=== PATIENT | male | born 1950 | race Caucasian/White ===

== ENCOUNTER 2017-06-12 02:10 | Inpatient (IN) | payer MEDICARE ==
[~2017-06-12] VITALS: Ht 180.3 cm; Wt 115.5 kg
[2017-06-12] VITALS (11 sets, daily range): BP systolic 110–131; BP diastolic 57–78; PULSE 93–119; RESP 15–24; O2SAT 94–99
--- NOTE | 2017-06-12 02:22 | ED.REPORT ---
HPI-Seizure Date of Service Jun 12, 2017 ED Provider: Reese Lorenzana MD A 67 year old male with a history of hypertension and diabetes is brought to the ED via EMS due to a seizure. The pt experienced a witnessed, first time seizure yesterday while the pt was in [place]. He denies incontinence or oral injury during the seizure. The pt waited to return to the [place] to be treated. The pt also reports abdominal pain, nausea, rectal bleeding, hematochezia and melena that began two days ago and has continued since. He denies headache, vomiting, loss of sensory or motor skills, vision changes. The pt has no history of either seizures or rectal bleeding. He had a lower endoscopy at [place] two years ago. Nursing Notes Stated Complaint: SEIZURE Chief Complaint: General Complaint Nursing Notes Reviewed: Yes Allergies: Coded Allergies: No Known Allergies (Unverified , 06/12/17) General Time Seen by Provider: 02:21 Chief Complaint Chief Complaint: Seizure, generalized Hx Obtained From: Patient, EMS Arrived By: Ambulance Onset Occurred: 1 day ago Symptom Duration: Since onset Recent Healthcare: No recent doctor visit, No recent hospitalization Similar Sx Previous: No Past Medical History Past Medical History psoriasis Reports: Diabetes mellitus, Hypertension Past Surgical History none reported Smoking History Unknown if Ever Smoker Social History Other Social History: Ambulatory Status Independent Review of Systems Review of Systems Note: rectal bleeding Respiratory: Denies: Non-productive cough, Shortness of breath Cardiovascular: Denies: Chest pain Musculoskeletal: Denies: Back pain, Neck pain Skin: Denies Rash Neurologic: Reports: Seizure, Denies: Focal weakness, Headache, Numbness, Vision change Complete sys rev & neg: except as marked. GI: Reports: Bloody/tarry stool, Hematochezia, Nausea, Denies: Vomiting Physical Exam Initial Vital Signs Vital Signs (First) Date Time Temp Pulse Resp B/P Pulse Ox O2 Delivery O2 Flow Rate FiO2 06/12/17 02:14 36.6 107 24 111/57 97 Room Air Initial VS: Reviewed General/Constitutional: Awake, Alert moderately obese Neck: Atraumatic, Supple, Full range of motion Respiratory / Chest: Atraumatic, Breath sounds NL, Breath sounds = bilat, No respiratory distress Cardiovascular: Heart rate NL, Regular rhythm, Heart sounds NL Neurologic: Oriented X3, Speech NL, No motor deficits, No sensory deficits Head / Eyes: Atraumatic, Normocephalic, PERRL, EOMI ENT: Atraumatic, Airway patent, Mucous membranes moist Abdomen: Atraumatic, Soft diffusely tender abdomen Upper Extremity / MS: Atraumatic, Full range of motion Lower Extremity / Pelvis / MS: Atraumatic, Full range of motion Skin: Color NL, Warm, Dry widespread psoriasis Psychiatric: Affect NL, Mood NL Back: Atraumatic, Full range of motion Rectum / Perineum: No hemorrhoids, No mass mixture of bright red blood and melena Interpretation & Diagnostics Lab Results Interpretation Result Diagram: 06/12/17 0455 06/12/17 0222 Test 06/12/17 02:22 06/12/17 03:49 06/12/17 04:55 White Blood Count 14.1th/mm3 (3.8-10.1) Red Blood Count 3.35mil/mm3 (4.40-5.80) Mean Corpuscular Volume 93.7fL (81-100) Mean Corpuscular Hemoglobin 32.5pg (27.0-35.0) Mean Corpuscular Hemoglobin Concent 34.7% (32.0-37.0) Red Cell Distribution Width 12.9% (12.3-15.4) Platelet Count 191bil/L (150-400) Neutrophils (%) (Auto) 77.6% (40-74) Lymphocytes (%) (Auto) 16.6% (14-46) Monocytes (%) (Auto) 5.0% (4-12) Eosinophils (%) (Auto) 0.2% (0-5) Basophils (%) (Auto) 0.2% (0-3) Prothrombin Time 10.8sec (8.1-12.5) Prothromb Time International Ratio 1.01ratio Sodium Level 135mEq/L (134-144) Potassium Level 5.2mEq/L (3.5-5.2) Chloride Level 101mEq/L (97-108) Carbon Dioxide Level 20mmol/L (18-29) Blood Urea Nitrogen 45mg/dL (8-27) Creatinine 1.08mg/dL (0.76-1.27) Estimat Glomerular Filtration Rate 72mL/min (>59) Glucose Level 383mg/dL (60-99) Calcium Level 9.2mg/dL (8.5-10.1) Magnesium Level 1.7mg/dL (1.6-2.6) Total Bilirubin 0.5mg/dL (0.0-1.2) Aspartate Amino Transf (AST/SGOT) 25U/L (0-50) Alanine Aminotransferase (ALT/SGPT) 42U/L (0-44) Alkaline Phosphatase 54U/L (25-160) Total Protein 6.2g/dL (6.4-8.4) Albumin 3.5g/dL (3.4-5.0) Lipase 41U/L (13-60) Alcohols < 10mg/dL (0-10) Urine Color Yellow (YELLOW) Urine Appearance Clear (CLEAR,HAZY) Urine pH 5.5 (5.0-8.0) Urine Specific [place] 1.015 (1.003-1.035) Urine Protein Negativemg/dL (NEG,TRACE) Urine Glucose (UA) 500mg/dL (NEGATIVE) Urine Ketones Negativemg/dL (NEGATIVE) Urine Occult Blood Negative (NEGATIVE) Urine Nitrite Negative (NEGATIVE) Urine Bilirubin Negative (NEGATIVE) Urine Urobilinogen Normalmg/dL (NORMAL) Urine Leukocyte Esterase Negative (NEGATIVE) Urine RBC 0-2/hpf (0-2) Urine WBC 0-5/hpf (0-5) Urine Epithelial Cells Occasional/hpf (NONE-MOD) Urine Crystals None seen (NONE SEEN) Urine Bacteria None/hpf (NONE-FEW) Urine Hyaline Casts None/lpf (NONE) Urine Granular Casts None seen (NONE SEEN) Urine Waxy Casts None seen (NONE SEEN) Urine Red Blood Cell Casts None seen (NONE SEEN) Urine White Blood Cell Casts None seen (NONE SEEN) Urine Mucus None seen (None Seen) Urine Trichomonas None seen (NONE SEEN) Urine Yeast None (NONE SEEN) Urinalysis Comment None Urine Opiates Screen Negative Urine Methadone Screen Negative Urine Barbiturates Screen Negative Urine Amphetamines Screen Negative Urine Benzodiazepines Screen Negative Urine Cocaine Metabolite Screen Negative Urine Cannabinoids Screen Negative Hemoglobin 9.8g/dL (13.8-17.2) Hematocrit 28.6% (41.0-50.0) ECG Interpretation ECG Interpretation: sinus tachycardia with a rate of 119 Time: 02:37 Interpreted by: ED physician X-Ray Chest Interpretation Chest Xray Interpretation: no acute findings Interpretation / Wet Read by: Wet read ED physician CT Head Interpretation IMPRESSION: No CT evidence of hemorrhage, mass, or acute infarct. Interpretation / Wet Read by: Interpret - Radiologist Re-Eval/Medical Decision Med Decision/Clinical Course 67-year-old presents with a seizure twenty-four hours ago, but his first ever. CT interpreted as negative, but there is a hyperdense area that appears calcified in the basal ganglia that is not symmetric and may represent an abnormal calcification. Await over read this morning and MRI later today. He complains additionally of bright red blood and melena per rectum. Rectal exam shows some maroonish stool that is grossly heme positive but no rectal mass or hemorrhoids. He appears to have an upper GI source most likely. He is had a recent endoscopy in the past two years, and may have an AV malformation or diverticulosis, but probably does not have a significant polyp or cancer. He is admitted to the medicine service for evaluation of his various problems. He has begun with Colyte to prepare him and enable upper and lower endoscopy. Hemoglobin is definitely low but adequate, but may require transfusion if he continues to bleed. Re-Evaluation/Progress : Time of Eval: 03:46 Patient Status: Condition improved Re-Evaluation/Progress Note: Pt rechecked, who is resting. The diagnosis and plan for admission are discussed. The pt understands and agrees with the plan. All questions are addressed at this time. 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 Hogan, hospitalist, regarding pt's case. Dr. Hogan agrees with the evaluation and agrees to admit the pt. Counseled Regarding: Diagnosis, Lab results, Need for admission Discharge & Departure Impression: Primary Impression: Upper GI bleed Additional Impression: New onset seizure Disposition: ADMITTED TO HOSPITAL Discharge Condition All VS Reviewed: Yes Condition: Stable Referrals: [facility] Scribe Attestation Portions of this note were transcribed by Johan Todd. I, Dr. Lorenzana personally performed the history, physical exam and medical decision-making; I reviewed and confirmed the accuracy of the information in the transcribed note. copies to: [facility] Reese Lorenzana MD Jun 12, 2017 02:21 JOHAN TODD Jun 12, 2017 02:38
[2017-06-12 02:29] LABS: BASOPHILS % (AUTO) 0.2 % (0-3); EOSINOPHILS % (AUTO) 0.2 % (0-5); Mean Corpuscular Hemoglobin 32.5 pg (27.0-35.0); Mean Corpuscular Volume 93.7 fL (81-100); NEUTROPHILS % (AUTO) 77.6 % (40-74); Platelet Count 191 bil/L (150-400)
[2017-06-12] MEDS ORDERED: 0.9% Sodium Chloride 1,000 ML IV ONE (02:33)
[2017-06-12 02:50] LABS: INR 1.01 ratio
[2017-06-12 02:56] LABS: Magnesium 1.7 mg/dL (1.6-2.6)
[2017-06-12] MEDS ORDERED: PEG/Electrolytes 4,000 mL Solution PO ONE (04:00)
[2017-06-12 04:20] LABS: APPEARANCE,URINE CLEAR (CLEAR,HAZY); COLOR,URINE YELLOW (YELLOW); OCCULT BLOOD,URINE NEGATIVE (NEGATIVE); PH,URINE 5.5 (5.0-8.0); UROBILINOGEN,URINE NORMAL (NORMAL)
[2017-06-12] MEDS ORDERED: Pantoprazole Inj 80 MG in 0.9% Sodium Chloride 80 ML IV ONE (04:25)
[2017-06-12] MEDS ORDERED: Ondansetron 2 mg/mL 2 mL Inj IVPUSH PRN ×2 (04:25→16:30)
--- NOTE | 2017-06-12 04:35 | PCM.HPMED ---
Subjective Date of Service Jun 12, 2017 Primary Provider: Admitting Physician: Primary Care Physician: Naty Attending Physician: Admit Status: From the Emergency Department, Full Admit, Remote Telemetry Chief Complaint: seizure,black stool History of Present Illness: 67 year old male who yesterday started having some black stool. Never had anything similar to this previously. He denies any chest pain he denies shortness of breath or lightheaded. He also was observed by his to have a generalized tonic-clonic seizure earlier today. He has no history of seizures. He actually is traveling from [place] was up in [place] and was driving through [employer] where this occurred and had several black stools and hence presented to the emergency room today. He has been having some epigastric pain but does note that sometimes it is generalized pain over the past 2 days. He notes some nausea denies any vomiting. He does not have any significant alcohol use. Denies nonsteroidal anti-inflammatory use. Review of Systems: Denies fevers chills denies urinary symptoms all other review of systems are negative except for as in history of present illness. Allergies Coded Allergies: No Known Allergies (Unverified , 06/12/17) Home Medications Med reconciliation has not been completed yet [facility] Past Medical History Past Medical History psoriasis Reports: Diabetes mellitus, Hypertension Past Surgical History none reported Family History Mother with a history of spinal tumor and father with a history of hypertension Social History Hx Alcohol Use: Yes (2 drinks per month at most) Hx Tobacco Use: Yes (he chews tobacco. And quit smoking cigarettes about 30 years ago) Smoking Status: Unknown if Ever Smoker Living Arrangement: with Family Exam Vital Signs Vital Sign - Last Date Time Temp Pulse Resp B/P Pulse Ox O2 Delivery O2 Flow Rate FiO2 06/12/17 02:14 36.6 107 24 111/57 97 Room Air Exam Constitutional: Middle-aged male in no acute distress Head: Normocephalic atraumatic Eyes: PERRLA DC EOMI Mouth: No lesions Neck: No adenopathy Chest: Clear to auscultation Cor: Regular rate and rhythm S1-S2 without murmur Abdomen: Soft mild diffuse tenderness including over the epigastrium bowel sounds are present Extremities: No pedal edema Skin: Does have psoriatic skin plaques present Psych: Mood and affect are appropriate Neuro: Alert and oriented 3, motor strength is intact bilaterally Lab and Diagnostics Labs Laboratory Tests 72 Hours Test 06/12/17 02:22 06/12/17 03:49 White Blood Count 14.1th/mm3 (3.8-10.1) Red Blood Count 3.35mil/mm3 (4.40-5.80) Hemoglobin 10.9g/dL (13.8-17.2) Hematocrit 31.4% (41.0-50.0) Mean Corpuscular Volume 93.7fL (81-100) Mean Corpuscular Hemoglobin 32.5pg (27.0-35.0) Mean Corpuscular Hemoglobin Concent 34.7% (32.0-37.0) Red Cell Distribution Width 12.9% (12.3-15.4) Platelet Count 191bil/L (150-400) Neutrophils (%) (Auto) 77.6% (40-74) Lymphocytes (%) (Auto) 16.6% (14-46) Monocytes (%) (Auto) 5.0% (4-12) Eosinophils (%) (Auto) 0.2% (0-5) Basophils (%) (Auto) 0.2% (0-3) Prothrombin Time 10.8sec (8.1-12.5) Prothromb Time International Ratio 1.01ratio Sodium Level 135mEq/L (134-144) Potassium Level 5.2mEq/L (3.5-5.2) Chloride Level 101mEq/L (97-108) Carbon Dioxide Level 20mmol/L (18-29) Blood Urea Nitrogen 45mg/dL (8-27) Creatinine 1.08mg/dL (0.76-1.27) Estimat Glomerular Filtration Rate 72mL/min (>59) Glucose Level 383mg/dL (60-99) Calcium Level 9.2mg/dL (8.5-10.1) Magnesium Level 1.7mg/dL (1.6-2.6) Total Bilirubin 0.5mg/dL (0.0-1.2) Aspartate Amino Transf (AST/SGOT) 25U/L (0-50) Alanine Aminotransferase (ALT/SGPT) 42U/L (0-44) Alkaline Phosphatase 54U/L (25-160) Total Protein 6.2g/dL (6.4-8.4) Albumin 3.5g/dL (3.4-5.0) Lipase 41U/L (13-60) Alcohols < 10mg/dL (0-10) Urine Color Yellow (YELLOW) Urine Appearance Clear (CLEAR,HAZY) Urine pH 5.5 (5.0-8.0) Urine Specific [place] 1.015 (1.003-1.035) Urine Protein Negativemg/dL (NEG,TRACE) Urine Glucose (UA) 500mg/dL (NEGATIVE) Urine Ketones Negativemg/dL (NEGATIVE) Urine Occult Blood Negative (NEGATIVE) Urine Nitrite Negative (NEGATIVE) Urine Bilirubin Negative (NEGATIVE) Urine Urobilinogen Normalmg/dL (NORMAL) Urine Leukocyte Esterase Negative (NEGATIVE) Urine RBC 0-2/hpf (0-2) Urine WBC 0-5/hpf (0-5) Urine Epithelial Cells Occasional/hpf (NONE-MOD) Urine Crystals None seen (NONE SEEN) Urine Bacteria None/hpf (NONE-FEW) Urine Hyaline Casts None/lpf (NONE) Urine Granular Casts None seen (NONE SEEN) Urine Waxy Casts None seen (NONE SEEN) Urine Red Blood Cell Casts None seen (NONE SEEN) Urine White Blood Cell Casts None seen (NONE SEEN) Urine Mucus None seen (None Seen) Urine Trichomonas None seen (NONE SEEN) Urine Yeast None (NONE SEEN) Urinalysis Comment None Urine Opiates Screen Negative Urine Methadone Screen Negative Urine Barbiturates Screen Negative Urine Amphetamines Screen Negative Urine Benzodiazepines Screen Negative Urine Cocaine Metabolite Screen Negative Urine Cannabinoids Screen Negative Result Diagram: 06/12/1722106/12/17221 X-Rays, CTs and MRIs CT of brain without contrast per ER M.D. is negative 12-lead ECG Sinus tachycardia at a rate of 119 Assessment & Plan #Melena, acute, present on admission -Most likely due to upper GI bleed so will start IV Protonix drip after loading with 80 mg IV -Check serial hematocrits -Need to call GI in a.m. regarding this patient -Type and hold PRBCs -Keep nothing by mouth #Generalized tonic-clonic seizure, new onset, acute, present on admission -We will check MRI of head in a.m. -We will not start any antiseizure medication at this time -Also check urine tox screen #Hypertension, chronic, present on admission -Need to find out what medications patient is on #Type II diabetes, chronic, present on admission -We will hold his oral glipizide -check 4 times a day blood sugars and put on correction dose insulin scale #Psoriasis, chronic, present on admission -We will need to find out what medications he is on #DVT prophylaxis -Because of GI bleed will not place on subcutaneous prophylactic anticoagulation -We will use SCDs #CODE STATUS -Full code GI Prophylaxis: Proton Pump Inhibitor VTE Prophylaxis Indicated: Contraindicated VTE Prophylaxis: SCDs Resuscitation Status: CPR: Attempt Resuscitation Time spent 60 minutes Trang Hogan MD Jun 12, 2017 04:34
[2017-06-12] MEDS: 0.9% Sodium Chloride 1,000 ML IV SCH ×2 (05:25→11:28)
[2017-06-12] MEDS: Pantoprazole Inj 80 MG, Pharmacy To Mix 1 EA in 0.9% Sodium Chloride 80 ML IV SCH ×4 (05:47→11:27)
--- NOTE | 2017-06-12 07:25 | DRSVH ---
PROCEDURE: CT BRAIN WITHOUT CONTRAST ([id number]) INDICATIONS: new onset seizure TECHNIQUE: Noncontrast 4.5 mm thick angled axial sections acquired from the foramen magnum to the vertex, with c oronal reformats. COMPARISON: None. FINDINGS: Image quality: Excellent. CSF spaces: Basal cisterns are patent. No extra-axial fluid collections. Ventricles are normal in size and shape. Brain: No midline shift. No intracranial masses or hemorrhage. [place]-white matter interface is norm al. Skull and face: Calvarium and visualized facial bones are intact, without suspicious lesions. Sinuses: Visualized sinuses and mastoids are clear. IMPRESSION: No CT evidence of acute intracranial pathology. Dictated by: Maurice Perez M.D. on 06/12/2017 at 7:22 Approved by: Maurice Perez M.D. on 06/12/2017 at 7:24
--- NOTE | 2017-06-12 07:43 | DRSVH ---
PROCEDURE: X-RAY CHEST ONE VIEW, PORTABLE ([id number]) INDICATIONS: seizure TECHNIQUE: One view of the chest was acquired. COMPARISON: None. FINDINGS: Surgical changes and devices: None. Lungs and pleura: No pleural effusions or pneumothorax. Lungs are clear. Mediastinum: Mediastinal contours appear normal. Heart size is normal. Bones and chest wall: No suspicious bony lesions. Overlying soft tissues appear unremarkable. IMPRESSION: No radiographic evidence of acute cardiopulmonary pathology. Dictated by: Maurice Perez M.D. on 06/12/2017 at 7:40 Approved by: Maurice Perez M.D. on 06/12/2017 at 7:41
[2017-06-12] MEDS ORDERED: Propofol 10,000 mCg/mL 20 mL Inj ONE (07:46)
[2017-06-12] MEDS ORDERED: OXYC-474 PO (09:20)
[2017-06-12] MEDS ORDERED: PREG150C PO (09:20)
[2017-06-12] MEDS ORDERED: LISI-567 PO (09:20)
[2017-06-12] MEDS ORDERED: PRAZ2CAP2 PO (09:20)
[2017-06-12] MEDS ORDERED: CHOL10008 PO (09:20)
[2017-06-12] MEDS ORDERED: GLPZ5T PO (09:20)
--- NOTE | 2017-06-12 09:57 | DRSVH ---
PROCEDURE: MRI BRAIN WITHOUT CONTRAST ([id number]) INDICATIONS: new onset seizure TECHNIQUE: Non-contrast axial T1 spin echo, axial T2 fast spin echo, sagittal and axial FLAIR, coronal T2 fast s pin echo, axial gradient echo, axial diffusion and ADC through the brain. COMPARISON: [facility], CT, CT BRAIN WO CON, 06/12/2017, 2:47. FINDINGS: Image quality: Motion is present throughout the examination. CSF spaces: Ventricles appear symmetric in size and shape. Basal cisterns are patent. No extra-axi al fluid collections. Brain: No intracranial bleeds or mass effects. There is cerebral volume loss for age. There are pe riventricular and deep white matter chronic small vessel ischemic changes. Brainstem appears normal. Diffusion-weighted images show no acute ischemic insults. No chronic ischemic insults. Normal int ravascular flow voids are present. Skull and face: Calvarial bone marrow is normal in signal. Orbits are normal. Sinuses: Sinuses and mastoids are clear. IMPRESSION: 1. No acute intracranial process. 2. Mild atrophy and chronic microvascular ischemic changes. Dictated by: Keyana Mcginnis M.D. on 06/12/2017 at 9:53 Approved by: Keyana Mcginnis M.D. on 06/12/2017 at 9:56
--- NOTE | 2017-06-12 13:44 | NUR ---
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 He completed his Colyte before his arrival. He since had a few black liquid stools in the bathroom. Pt. denied discomfort or pain. Telemetry is SR. H&H stable at 9.8/28.6 and 9.4/27.3. Continue Protonix drip. Plan: GI consult.
--- NOTE | 2017-06-12 15:43 | NUR ---
Social Work-initial assessment: Data:See initial assessment. Pt is a 67 y/o male who was admitted on 06/12/17 for UGI bleed per H&P. Pt's insurance is [facility] and PCP is in [place]. EMR reviewed. MALACHI met with pt at bedside, SW role explained. Pt is alert and oriented x3. Pt resides at home in [place] with his , but is currently on vacation in their RV. Pt drives and does not use any DME. Pt has no HH or SNF history. Pt has no terminal carman care insurance or VA benefits. SW discussed DPOA/ advanced directive paperwork, pt declining at this time. SW provided pt with discharge planning checklist booklet and encouraged him to call with question, phone number provided. Pt's to provide transport home. SW to follow for needs and MD orders. Assessment:Pt who is independent at baseline. Plan:Anticipate pt to discharge home with when medically stable. SW to follow for needs and MD orders. JHONATAN Cruz Addendum: 06/12/17 at 1546 by SHANNAN STRICKLAND Amended: Links added.
--- NOTE | 2017-06-12 15:58 | NUR ---
Endo Pt. is scheduled for upper endoscopy this afternoon. Report given to Endo nurse, LINDSAY Champagne. Addendum: 06/12/17 at 1619 by PRIYA SIDDIQI RN Pt. transferred to [facility] at 1618, accompanied by 2 Endo nurses. medical office technologist was notified. Addendum: 06/12/17 at 1807 by PRIYA SIDDIQI RN Pt. returned to [facility] at 1752. On arrival, he was alert, oriented, and LUCERO.
--- NOTE | 2017-06-12 16:28 | CONS ---
[address] [address] CONSULTATION REPORT PATIENT: EVELYN DOTY : 1950 MR#: [id number] ADMIT: 06/12/2017 JOB ID: [id number] DATE OF SERVICE: 06/12/2017 REASON FOR CONSULTATION: It was a pleasure seeing this patient at [facility] for melena. HISTORY OF PRESENT ILLNESS: This is a 67-year-old gentleman with past history of psoriasis, diabetes, hypertension, who started having black stools about 2-3 days ago. He had formed black stools about 2-3 times a day. However, the reason why he came to the emergency department is because his noted that he had generalized tonic-clonic seizure, and because of this, the patient was brought to the emergency department. In the emergency department, they incidentally found that he had melena and he was noted to be anemic. He was given 80 mg Protonix bolus and 8 mg an hour of drip. He has no further episodes of seizure and currently he is being worked up for seizure. Apparently he was given GoLYTELY and his stool did clear up. He had no continuing episode of melena according to the medical staff and he denies any lightheadedness, dizziness, chest pain, shortness of breath, abdominal pain. No fresh blood or maroon colored stools. He did indicate to me that he started having abdominal pain after he started taking the GoLYTELY prep. However, he did not have any abdominal pain when he was at home. But, he did have issues with musculoskeletal pain so he was taking aspirin and ibuprofen. PAST MEDICAL HISTORY: As above. PAST SURGICAL HISTORY: None. SOCIAL HISTORY: Drinks alcohol 2 drinks per month. Uses tobacco, he chews; but he stopped smoking 30 years ago. No THC. MEDICATIONS: In the hospital include Protonix, Zofran. PHYSICAL EXAMINATION: Patient is alert, oriented, comfortable. Temp 37, pulse 93, respiration 18, blood pressure 126/74. Head and neck: No icterus. Lungs clear. Cardiovascular: Regular rate and rhythm. Normal S1, S2. Abdomen is soft, nontender, nondistended with normoactive bowel sounds. Extremities: No pitting edema at the ankles. Skin shows no jaundice. LABORATORY DATA: Hemoglobin: He went from 9.8 to 9.4. INR 1.01. Chemistry: BUN 45, creatinine 1.08, glucose 383. LFTs normal. Lipase normal. IMAGING: Brain MRI: No acute intercranial process. Myotrophy. Chronic microvascular ischemic changes. IMPRESSION: This is a gentleman who took some nonsteroidal antiinflammatory drugs [id number] as well as aspirin with melena. He is hemodynamically stable. Not tachycardic. Not dizzy, lightheaded. He has risk of developing ulcers. I was informed that his stool output has cleared. Most likely peptic ulcer disease. RECOMMENDATION: EGD and continue Protonix for now. MTDD
[2017-06-12] MEDS ORDERED: MetoCLOpramide 5 mg/mL 2 mL Inj IVPUSH PRN (16:30)
--- NOTE | 2017-06-12 16:35 | PCM.HPANE ---
Patient Data Surgeon Admitting Provider:Trang Hogan MD Attending Provider:Yeison Aragon MD Primary Care Physician:Nopcp Other Provider: Reason for Visit Ugi Bleed Anemia New Onset Seizures Ht/WT & BMI Height (Feet): 5 Height (Inches): 11.00 Weight (Kilograms): 112.800 Body Mass Index 34.81 Allergies Coded Allergies: No Known Allergies (Unverified , 06/12/17) Past Anesthesia History Anesthesia History: Denies:: Anesthesia Reactions Diabetes History Hx Diabetes?: No (Pre-diabetes) Current Bedside Blood Glucose: 167 MRSA MRSA: No Medications Reported Medications Oxycodone (Roxicodone)5 Mg [id number] Mg PO Q4-6Hrs PRN For Pain Ref 0 06/12/17 Cholecalciferol (Vitamin D3) (Vitamin D3)1,000 Unit Tab.chew2,000 Unit PO DAILY 06/12/17 Prazosin 2 Mg Capsule4 Mg PO HS 06/12/17 Pregabalin (Lyrica)150 Mg [id number] Mg PO BID 30 Days Ref 0 06/12/17 Glipizide 5 Mg Tablet2.5 Mg PO BIDWM 30 Days 06/12/17 Lisinopril 20 Mg [id number] Mg PO DAILY 30 Days Ref 0 06/12/17 History History of ENT Problems?: No HEENT History: Denies:: Cataracts Dysphagia Glaucoma Sinus Problem Denture Type: None Teeth Condition: Within Normal Limits Hx of Heart Problems?: Yes Cardiovascular History: Positive for:: Hypertension Denies:: Chest Pain Congestive Heart Failure Edema Heart Murmur Irregular Heartbeat Pacemaker Thrombophlebitis Hx of Respiratory Problem?: Yes Respiratory History: Positive for:: Dyspnea (on exertion) Denies:: Asthma COPD Chest Surgery Emphysema Hemoptysis Pneumonia Tuberculosis Hx Neurologic Problems?: Yes Neurological History: Positive for:: Dizziness (Yesterday 06/11/17) Headaches (A lot) Seizures (Yesterday, first time) Denies:: Alzheimer's Disease CVA Dementia Parkinson's Disease Hx of GI Problems?: Yes Hx of Problems?: No Genitourinary History: Denies:: HX of Hemodialysis Kidney Stones Urinary Tract Infection HX of Peritoneal Dialysis: No Male Hx: Denies:: Prostate Problems Scrotal Mass Testicular Surgery Hx Musculoskeletal Problems?: Yes Musculoskeletal History: Positive for:: Back Injury (Back surgery x3 ( cervical and Lumbar)) Denies:: Joint Replacement Musculoskeletal Trauma Hx of Psycho/Social Problems?: Yes Psycho Social History: Positive for:: Anxiety (PTSD) Hx Depression ( ) Denies:: Bipolar Disorder Suicide Attempt Hx Surgeries?: Yes Hx Any Other Health Problems?: Yes Other History: Denies:: Cancer Hospitalization Thyroid Disease History Blood Transfusions: Positive for:: Accept Blood Products? Denies:: Blood Transfusions Hx Diabetes: No (Pre-diabetes)Bedside Blood Glucose: 167 Hx Alcohol Use: Yes ("Maybe 4 beers a year") Smoking Status: Unknown if Ever Smoker Stop/Bang Treated for Sleep Apnea?: Yes Do You Have a CPAP Machine?: Yes S-Snoring: Do You Snore Loudly: Yes T-Tired: feel tired, fatigued: No O-Obsered: Observed not breath: Yes P-Blood Pressure: treated: Yes B- Body Mass Index > 35 kg/m2: No A- Age over 50: Yes N- Neck Large Circumference: No G- Gender Male: Yes ANIVAL Total Score: 4 ANIVAL Risk Assessment: High Risk, =/>3 Yes Risk Assessment Category Category 1A: Patient has history of documented sleep apnea, and HAS NOT received any narcotic, sedative or anesthesia administration during this stay. Category 1B: Patient has history of documented sleep apnea, and HAS received any narcotic , sedative or anesthesia administration during this stay Category 2: Patient has SUSPECTED Obstructive Sleep Apnea, and HAS received any narcotic , sedative or anesthesia administration during this stay. Category 3: Patient has SUSPECTED Obstructive Sleep Apnea and HAS NOT received narcotic, sedative or anesthesia administration during this stay. Category 4: Outpatient in Procedural Areas with known sleep apnea or who screen positive for High Risk via the STOP/BANG questionnaire. Exam Exam Vital Signs Vital Signs Date Time Temp Pulse Resp B/P Pulse Ox O2 Delivery O2 Flow Rate FiO2 06/12/17 13:25 37.1 93 18 126/74 97 Room Air 06/12/17 10:41 95 06/12/17 07:50 36.8 102 18 113/78 94 Room Air General Appearance: Alert HEENT/AIRWAY: MP 3, Neck Movement (from, 3 fb) Lungs: Clear to Auscultation Heart: Regular Rate/Rhythm Meds/Labs/Diagnostics Admission Meds Current Medications Sodium Chloride (Normal Saline) 1,000 ml @ 0 mls/hr Q0M ONCE IV Last administered on 06/12/17 03:26; Start 06/12/17 at 02:33; Stop 06/12/17 at 02:39 ; Status DC Polyethylene Glycol/ Electrolytes 4000 ml 4,000 ml ONCE ONCE PO Last administered on 06/12/17 05:25; Start 06/12/17 at 04:00; Stop 06/12/17 at 04:01 ; Status DC Sodium Chloride 1,000 ml @ 100 mls/hr Q10H IV Last administered on 06/12/17 11:28; Start 06/12/17 at 04:22 Pantoprazole 80 mg/Sodium Chloride 100 ml @ 400 mls/hr ONCE ONCE IV Last administered on 06/12/17 05:25; Start 06/12/17 at 04:25; Stop 06/12/17 at 04:39 ; Status DC Pantoprazole/ Miscellaneous/ Sodium Chloride (Protonix Inj/ Pharmacy To Mix/ Normal Saline) 100 ml @ 10 mls/hr Q10H IV Last administered on 06/12/17 11:27 ; Start 06/12/17 at 04:25 Bedside Blood Glucose: 167 Labs Test 06/12/17 02:22 06/12/17 03:49 06/12/17 10:15 White Blood Count 14.1th/mm3 (3.8-10.1) Red Blood Count 3.35mil/mm3 (4.40-5.80) Mean Corpuscular Volume 93.7fL (81-100) Mean Corpuscular Hemoglobin 32.5pg (27.0-35.0) Mean Corpuscular Hemoglobin Concent 34.7% (32.0-37.0) Red Cell Distribution Width 12.9% (12.3-15.4) Platelet Count 191bil/L (150-400) Neutrophils (%) (Auto) 77.6% (40-74) Lymphocytes (%) (Auto) 16.6% (14-46) Monocytes (%) (Auto) 5.0% (4-12) Eosinophils (%) (Auto) 0.2% (0-5) Basophils (%) (Auto) 0.2% (0-3) Prothrombin Time 10.8sec (8.1-12.5) Prothromb Time International Ratio 1.01ratio Sodium Level 135mEq/L (134-144) Potassium Level 5.2mEq/L (3.5-5.2) Chloride Level 101mEq/L (97-108) Carbon Dioxide Level 20mmol/L (18-29) Blood Urea Nitrogen 45mg/dL (8-27) Creatinine 1.08mg/dL (0.76-1.27) Estimat Glomerular Filtration Rate 72mL/min (>59) Glucose Level 383mg/dL (60-99) Calcium Level 9.2mg/dL (8.5-10.1) Magnesium Level 1.7mg/dL (1.6-2.6) Total Bilirubin 0.5mg/dL (0.0-1.2) Aspartate Amino Transf (AST/SGOT) 25U/L (0-50) Alanine Aminotransferase (ALT/SGPT) 42U/L (0-44) Alkaline Phosphatase 54U/L (25-160) Total Protein 6.2g/dL (6.4-8.4) Albumin 3.5g/dL (3.4-5.0) Lipase 41U/L (13-60) Alcohols < 10mg/dL (0-10) Urine Color Yellow (YELLOW) Urine Appearance Clear (CLEAR,HAZY) Urine pH 5.5 (5.0-8.0) Urine Specific [place] 1.015 (1.003-1.035) Urine Protein Negativemg/dL (NEG,TRACE) Urine Glucose (UA) 500mg/dL (NEGATIVE) Urine Ketones Negativemg/dL (NEGATIVE) Urine Occult Blood Negative (NEGATIVE) Urine Nitrite Negative (NEGATIVE) Urine Bilirubin Negative (NEGATIVE) Urine Urobilinogen Normalmg/dL (NORMAL) Urine Leukocyte Esterase Negative (NEGATIVE) Urine RBC 0-2/hpf (0-2) Urine WBC 0-5/hpf (0-5) Urine Epithelial Cells Occasional/hpf (NONE-MOD) Urine Crystals None seen (NONE SEEN) Urine Bacteria None/hpf (NONE-FEW) Urine Hyaline Casts None/lpf (NONE) Urine Granular Casts None seen (NONE SEEN) Urine Waxy Casts None seen (NONE SEEN) Urine Red Blood Cell Casts None seen (NONE SEEN) Urine White Blood Cell Casts None seen (NONE SEEN) Urine Mucus None seen (None Seen) Urine Trichomonas None seen (NONE SEEN) Urine Yeast None (NONE SEEN) Urinalysis Comment None Urine Opiates Screen Negative Urine Methadone Screen Negative Urine Barbiturates Screen Negative Urine Amphetamines Screen Negative Urine Benzodiazepines Screen Negative Urine Cocaine Metabolite Screen Negative Urine Cannabinoids Screen Negative Hemoglobin 9.4g/dL (13.8-17.2) Hematocrit 27.3% (41.0-50.0) Troponin T 0.010ug/L (0.0-0.011) Plan Impression Patient chart reviewed, patient interviewed and anesthestic plan with risks, benefits, and alternatives discussed, and informed consent obtained. NPO per Anesth. Guidelines: Yes ASA Physical Status: ASA3 Severe Disease Anesthetic Plan: MAC Bene/Risks/Altern/Consents: Yes HP Complete Prior to Induction: Yes Yoan Crow MD Jun 12, 2017 14:51
[2017-06-12] MEDS: Lactated Ringer's 1,000 ML IV SCH ×2 (17:18→18:02)
--- NOTE | 2017-06-12 17:27 | PCM.ENDEGD ---
EGD Date of Service: Jun 12, 2017 Physician Brad Junior Pre Procedure Diagnosis: Melena Post Procedure Dx & Findings: Erosive gastropathy gastric ulcer and Rosario's esophagus Procedure Esophagogastroduodenoscopy PROCEDURE IN DETAIL: Sedation by the anesthesiologist After proper sedation, Olympus video endoscope was inserted into patient's mouth and esophagus was successfully intubated. Scope introduced esophagus. Esophagus showed normal shiny whitish mucosa consistent with squamous cell component. Z line was at 45 cm from the incisors. 2 cm length of salmon- colored mucosa consistent with Rosario's esophagus noted. Narrow banding done. No ulcer mass erosive mucosal abnormality noted. Four-quadrant biopsy done every 2 cm. Stomach further advanced to the stomach. The stomach showed diffuse erosive gastropathy with isolated surface old blood. These were all washable. There was no underlying ulcer mass. It appears the patient could have was some blood from NSAID use. Also at the prepylorus, there was a 1 cm superficial ulcer. And within the pyloric channel there was a half centimeter ulcer with some cratering. Biopsies were done at the ulcers as well as the erosive gastropathy and placed in the same bottle. Cardia fundus body antrum pylorus were all visualized. Retroflexion was done. Stomach was easily inflated and deflatable using air. Scope further advanced to the distal duodenum. Duodenum revealed normal villous structures with normal appearing folds without any mass ulcer erosion. Impression Erosive gastropathy with gastric ulcers. Biopsies done Probable Rosario's esophagus with biopsies per protocol Recommendation Advanced diet as tolerated Switch to by mouth PPI Presedation Assessment Risks and Benefits Informed consent was obtained from the patient after all risks and benefits including but not limited to drug reaction, infection, pain, bleeding, perforation, as well as alternatives were discussed. Patient monitoring Continuous pulse oximetry, cardiac monitoring, blood pressure monitoring, IV access, and oxygen at 2L per nasal cannula. Complications There were no periprocedural complications identified. Post Procedure Plan Post Procedure Recommendations 1. Restrict activities today. 2. Resume normal activities in the morning. 3. Resume medications. 4. GERD behavioral modification: - Avoid fatty, acidic, spicy, large meals - Do not lie down after meals - Do not eat or drink anything for at least 2 1/2 hours before going to bed at night - Discontinue tobacco and alcohol - Decrease or avoid caffeine - Avoid chocolate and mints - Decrease weight - Avoid aspirin and non steroidal anti-inflammatory agents (NSAID) such as Aleve, Advil, Mobic, Naproxen, Ibuprofen, etc 5. Add proton pump inhibitor. Take 30 minutes before 1st meal of the day. 6. Patient informed of normal post procedure side effects as bloating, drowsiness, blood streaking in the stool 7. If gastric biopsy reveal H.pylori, continue with appropriate treatment 8. If small bowel biopsy reveals celiac, continue with appropriate treatment 9. Please don't hesitate to call me with any questions Brad Junior MD Jun 12, 2017 17:27
--- NOTE | 2017-06-12 17:31 | PCM.ANEP1 ---
Post Anesthesia PACU Phase 1 Assessment Vital Signs Vital Signs Date Time Temp Pulse Resp B/P Pulse Ox O2 Delivery O2 Flow Rate FiO2 06/12/17 17:25 107 122/72 97 Room Air 06/12/17 16:23 37.3 96 16 115/70 95 Room Air 06/12/17 13:25 37.1 93 18 126/74 97 Room Air 06/12/17 10:41 95 Anesthetic Administered: MAC Level of Alertness: Awake, talking LUCERO's with Equal Strength: Yes Pain: No Nausea or Vomiting: No CV Function & Hydration Stable: Yes Airway Device: Oxygen Delivery: Room Air Lungs: Clear to Auscultation Dermatome Level: Full Sensation PACU Phase 2 Assessment Complications: No Follow up Care: N/A Patient Instructions Provided: N/A Yoan Crow MD Jun 12, 2017 17:31
[2017-06-12] MEDS: Pantoprazole 40 mg ER24 Tablet PO SCH (20:05)
--- NOTE | 2017-06-13 00:07 | NUR ---
HH Repeat HH were 7.4 and 22.1. pt continues to have liquid black stool, but slowed down. denies dizziness of lightheadedness when getting up. Dr. Hogan was notified, no new orders at this time. AM labs already ordered.
[2017-06-13 00:19] VITALS: BP 117/66; PULSE 94; RESP 20; O2SAT 97
[2017-06-13] MEDS: 0.9% Sodium Chloride 1,000 ML IV SCH ×2 (00:22→10:22)
[2017-06-13 04:27] VITALS: BP 111/71; PULSE 85; RESP 20; O2SAT 97
[2017-06-13 05:43] LABS: BASOPHILS % (AUTO) 0.4 % (0-3); EOSINOPHILS % (AUTO) 2.8 % (0-5); MONOCYTES % (AUTO) 6.3 % (4-12); Mean Corpuscular Hemoglobin 31.9 pg (27.0-35.0); Mean Corpuscular Volume 95.2 fL (81-100); NEUTROPHILS % (AUTO) 52.5 % (40-74); Platelet Count 125 bil/L (150-400)
[2017-06-13] MEDS ORDERED: Lactated Ringer's 1,000 ML IV ONE (06:00)
[2017-06-13] MEDS: Pantoprazole 40 mg ER24 Tablet PO SCH ×2 (07:42→17:20)
[2017-06-13 09:58] VITALS: BP 116/71; PULSE 79; RESP 20; O2SAT 97
[2017-06-13 10:43] VITALS: PULSE 82
[2017-06-13 13:16] VITALS: BP 115/73; PULSE 87; RESP 20; O2SAT 95
--- NOTE | 2017-06-13 14:51 | PCM.PNMED ---
Subjective Date of Service Jun 13, 2017 Subjective When I saw the patient is morning he has no abdominal pain and he did not have any more bowel movements. Exam Vital Signs Vital Sign - Last Date Time Temp Pulse Resp B/P Pulse Ox O2 Delivery O2 Flow Rate FiO2 06/13/17 13:16 36.7 87 20 115/73 95 Room Air 06/12/17 20:10 21 Intake and Output 06/12/17 06/12/17 06/13/17 Cumulative From/Thru 15:00 23:00 07:00 06/12/17 02:14 - 06/13/17 06:19 Intake Total 1510 ml 300 ml 1810 ml Output Total 1000 ml 800 ml 1800 ml Balance 510 ml -500 ml 10 ml Intake Oral 536 ml 300 ml 836 ml IV Total 974 ml 974 ml Output Urine Total 550 ml 600 ml 1150 ml Stool Total 450 ml 200 ml 650 ml # Bowel Movements 2 2 Exam Patient is alert and comfortable Head and neck no icterus Lungs clear Cardiovascular regular rate and rhythm with normal S1-S2 Abdomen soft nontender nondistended with normoactive bowel sounds Extremities no pedal edema. Skin shows no jaundice. Lab and Diagnostics Result Diagram: 06/13/17 1022 06/13/17 0510 X-Rays, CTs and MRIs CT of brain without contrast per ER M.D. is negative 12-lead ECG Sinus tachycardia at a rate of 119 Assessment & Plan Is a gentleman who had melena and no bowel movement since the upper endoscopy. These showed erosive gastropathy as well as clean-based ulcers. These are the most likely cause of the anemia and melena. Because these are low risk for rebleeding, had asked to stop the IV PPI and start high-dose oral PPI. He is doing well. He is not tachycardic. However his hemoglobin did drop. But I do not think this is due to active bleeding. Follow hemoglobin. I do not believe this is bleeding. In fact his hemoglobin went from 7.4 7.9-8.6. Hemoglobin seems to be in a stable trend since last night. Consider iron supplements as an outpatient. Advanced diet as tolerated. He should not have any more black stools unless iron supplements are started. GI Prophylaxis: Proton Pump Inhibitor VTE Prophylaxis: SCDs VTE Mechanical Devices: Intermittant Pneumatic CD Resuscitation Status: CPR: Attempt Resuscitation Brad Junior MD Jun 13, 2017 14:51
--- NOTE | 2017-06-13 16:02 | PCM.DIMED ---
Discharge Instructions Date of Service Jun 13, 2017 Dates of Hospitalization Jun 12, 2017 at 05:44 Discharge Diagnosis Discharge Diagnosis #Acute Gastric ulcer with gastropathy #Acute blood loss anemia, #Chronic Barretts esophagus #Generalized tonic-clonic seizure #Hypertension, chronic #Type II diabetes #Psoriasis, chronic Diet Discharge Diet: Heart Healthy, Other (GERD diet) Patient Instructions Patient Instructions . GERD behavioral modification per the Watch Technician who saw you in the hospital - Avoid fatty, acidic, spicy, large meals - Do not lie down after meals - Do not eat or drink anything for at least 2 1/2 hours before going to bed at night - Discontinue tobacco and alcohol - Decrease or avoid caffeine - Avoid chocolate and mints - Decrease weight - Avoid aspirin and non steroidal anti-inflammatory agents (NSAID) such as Aleve, Advil, Mobic, Naproxen, Ibuprofen, etc Follow-up plan Call you primary care provider this Sunday when you get back to [place] for appointment MARY BETH. Continue to HOLD your Glipizide until you get back to [place] and you can check your blood sugar, only restart the Glipizide if the blood sugar is > 140, and use 1/2 the dose to start with. No driving James Rubi MD Jun 13, 2017 16:02
--- NOTE | 2017-06-13 16:05 | PCM.DC.MED ---
Discharge Summary Date of Service Jun 13, 2017 Dates of Hospitalization Date of Hospital Admission Jun 12, 2017 at 05:44 Date of Discharge: Jun 13, 2017 Providers: Admitting Physician: Trang Hogan MD Primary Care Physician: Naty Attending Physician: James Rubi MD Diagnosis at Time of Discharge Diagnosis at Time of Discharge #Acute Gastric ulcer with gastropathy, poa, improving #Acute blood loss nemia, poa, improving #Chronic Barretts esophagus, poa, #Generalized tonic-clonic seizure, new onset, acute, present on admission #Hypertension, chronic, present on admission #Psoriasis, chronic, present on admission Consultations DATE OF SERVICE: 06/12/2017 REASON FOR CONSULTATION: It was a pleasure seeing this patient at [facility] for melena. HISTORY OF PRESENT ILLNESS: This is a 67-year-old gentleman with past history of psoriasis, diabetes, hypertension, who started having black stools about 2-3 days ago. He had formed black stools about 2-3 times a day. However, the reason why he came to the emergency department is because his noted that he had generalized tonic-clonic seizure, and because of this, the patient was brought to the emergency department. In the emergency department, they incidentally found that he had melena and he was noted to be anemic. He was given 80 mg Protonix bolus and 8 mg an hour of drip. He has no further episodes of seizure and currently he is being worked up for seizure. Apparently he was given GoLYTELY and his stool did clear up. He had no continuing episode of melena according to the medical staff and he denies any lightheadedness, dizziness, chest pain, shortness of breath, abdominal pain. No fresh blood or maroon colored stools. He did indicate to me that he started having abdominal pain after he started taking the GoLYTELY prep. However, he did not have any abdominal pain when he was at home. But, he did have issues with musculoskeletal pain so he was taking aspirin and ibuprofen. PAST MEDICAL HISTORY: As above. PAST SURGICAL HISTORY: None. SOCIAL HISTORY: Drinks alcohol 2 drinks per month. Uses tobacco, he chews; but he stopped smoking 30 years ago. No THC. MEDICATIONS: In the hospital include Protonix, Zofran. PHYSICAL EXAMINATION: Patient is alert, oriented, comfortable. Temp 37, pulse 93, respiration 18, blood pressure 126/74. Head and neck: No icterus. Lungs clear. Cardiovascular: Regular rate and rhythm. Normal S1, S2. Abdomen is soft, nontender, nondistended with normoactive bowel sounds. Extremities: No pitting edema at the ankles. Skin shows no jaundice. LABORATORY DATA: Hemoglobin: He went from 9.8 to 9.4. INR 1.01. Chemistry: BUN 45, creatinine 1.08, glucose 383. LFTs normal. Lipase normal. IMAGING: Brain MRI: No acute intercranial process. Myotrophy. Chronic microvascular ischemic changes. IMPRESSION: This is a gentleman who took some nonsteroidal antiinflammatory drugs [id number] as well as aspirin with melena. He is hemodynamically stable. Not tachycardic. Not dizzy, lightheaded. He has risk of developing ulcers. I was informed that his stool output has cleared. Most likely peptic ulcer disease. RECOMMENDATION: EGD and continue Protonix for now. Brad Junior MD 06/12/17 1940 Procedures XRay, CTs & MRIs CT of brain without contrast per RADHA Ricahrdson is negative Date of Service: 06/12/17 0422 PROCEDURE: MRI BRAIN WITHOUT CONTRAST ([id number]) INDICATIONS: new onset seizure TECHNIQUE: Non-contrast axial T1 spin echo, axial T2 fast spin echo, sagittal and axial FLAIR, coronal T2 fast spin echo, axial gradient echo, axial diffusion and ADC through the brain. COMPARISON: [facility], CT, CT BRAIN WO CON, 06/12/2017, 2:47. FINDINGS: Image quality: Motion is present throughout the examination. CSF spaces: Ventricles appear symmetric in size and shape. Basal cisterns are patent. No extra-axial fluid collections. Brain: No intracranial bleeds or mass effects. There is cerebral volume loss for age. There are periventricular and deep white matter chronic small vessel ischemic changes. Brainstem appears normal. Diffusion-weighted images show no acute ischemic insults. No chronic ischemic insults. Normal intravascular flow voids are present. Skull and face: Calvarial bone marrow is normal in signal. Orbits are normal. Sinuses: Sinuses and mastoids are clear. IMPRESSION: 1. No acute intracranial process. 2. Mild atrophy and chronic microvascular ischemic changes. Dictated by: Keyana Mcginnis M.D. on 06/12/2017 at 9:53 PROCEDURE: X-RAY CHEST ONE VIEW, PORTABLE ([id number]) INDICATIONS: seizure TECHNIQUE: One view of the chest was acquired. COMPARISON: None. FINDINGS: Surgical changes and devices: None. Lungs and pleura: No pleural effusions or pneumothorax. Lungs are clear. Mediastinum: Mediastinal contours appear normal. Heart size is normal. Bones and chest wall: No suspicious bony lesions. Overlying soft tissues appear unremarkable. IMPRESSION: No radiographic evidence of acute cardiopulmonary pathology. Dictated by: Maurice Perez M.D. on 06/12/2017 at 7:40 ECG 12 Lead Sinus tachycardia at a rate of 119 Invasive Procedures EGD Date of Service: Jun 12, 2017 Physician Brad Junior Pre Procedure Diagnosis: Melena Post Procedure Dx & Findings: Erosive gastropathy gastric ulcer and Rosario's esophagus Procedure Esophagogastroduodenoscopy PROCEDURE IN DETAIL: Sedation by the anesthesiologist After proper sedation, Olympus video endoscope was inserted into patient's mouth and esophagus was successfully intubated. Scope introduced esophagus. Esophagus showed normal shiny whitish mucosa consistent with squamous cell component. Z line was at 45 cm from the incisors. 2 cm length of salmon- colored mucosa consistent with Rosario's esophagus noted. Narrow banding done. No ulcer mass erosive mucosal abnormality noted. Four-quadrant biopsy done every 2 cm. Stomach further advanced to the stomach. The stomach showed diffuse erosive gastropathy with isolated surface old blood. These were all washable. There was no underlying ulcer mass. It appears the patient could have was some blood from NSAID use. Also at the prepylorus, there was a 1 cm superficial ulcer. And within the pyloric channel there was a half centimeter ulcer with some cratering. Biopsies were done at the ulcers as well as the erosive gastropathy and placed in the same bottle. Cardia fundus body antrum pylorus were all visualized. Retroflexion was done. Stomach was easily inflated and deflatable using air. Scope further advanced to the distal duodenum. Duodenum revealed normal villous structures with normal appearing folds without any mass ulcer erosion. Impression Erosive gastropathy with gastric ulcers. Biopsies done Probable Rosario's esophagus with biopsies per protocol Recommendation Advanced diet as tolerated Switch to by mouth PPI Presedation Assessment Risks and Benefits Informed consent was obtained from the patient after all risks and benefits including but not limited to drug reaction, infection, pain, bleeding, perforation, as well as alternatives were discussed. Patient monitoring Continuous pulse oximetry, cardiac monitoring, blood pressure monitoring, IV access, and oxygen at 2L per nasal cannula. Complications There were no periprocedural complications identified. Post Procedure Plan Post Procedure Recommendations 1. Restrict activities today. 2. Resume normal activities in the morning. 3. Resume medications. 4. GERD behavioral modification: - Avoid fatty, acidic, spicy, large meals - Do not lie down after meals - Do not eat or drink anything for at least 2 1/2 hours before going to bed at night - Discontinue tobacco and alcohol - Decrease or avoid caffeine - Avoid chocolate and mints - Decrease weight - Avoid aspirin and non steroidal anti-inflammatory agents (NSAID) such as Aleve, Advil, Mobic, Naproxen, Ibuprofen, etc 5. Add proton pump inhibitor. Take 30 minutes before 1st meal of the day. 6. Patient informed of normal post procedure side effects as bloating, drowsiness, blood streaking in the stool 7. If gastric biopsy reveal H.pylori, continue with appropriate treatment 8. If small bowel biopsy reveals celiac, continue with appropriate treatment 9. Please don't hesitate to call me with any questions Brad Junior MD Brief History 67 year old male who yesterday started having some black stool. Never had anything similar to this previously. He denies any chest pain he denies shortness of breath or lightheaded. He also was observed by his to have a generalized tonic-clonic seizure earlier today. He has no history of seizures. He actually is traveling from [place] was up in [place] and was driving through [place] where this occurred and had several black stools and hence presented to the emergency room today. He has been having some epigastric pain but does note that sometimes it is generalized pain over the past 2 days. He notes some nausea denies any vomiting. He does not have any significant alcohol use. Denies nonsteroidal anti-inflammatory use. Hospital Course #Acute Gastric ulcer with gastropathy, poa, improving -seen on endoscopy Discharge home; -protonix 40 PO daily -GERD precautions per GI discussed with patient #Acute blood loss nemia, poa, improving -secondary to gastric ulcer -Hb is 8.6 today, patient will see pcp Sunday and repeat cbc is recommended #Chronic Barretts esophagus, poa, -stable-follow up with pcp fpr survalience etc #Generalized tonic-clonic seizure, new onset, acute, present on admission -MRI of head negative -probably secondary to hypoglycemia -[id number] will follow up with pcp in [place] Sunday, they can continue further workup with eeg as indicated -no driving #Hypertension, chronic, present on admission -continue home meds #Type II diabetes, chronic, present on admission -due to seizure, hypoglycemia, patient will not take glipizide until back in [place] and they can check his blood sugar, if over 140 can restart glipizide at 1/2 the dose #Psoriasis, chronic, present on admission Exam Vital Signs (Last) Date Time Temp Pulse Resp B/P Pulse Ox O2 Delivery O2 Flow Rate FiO2 06/13/17 13:16 36.7 87 20 115/73 95 Room Air 06/12/17 20:10 21 Exam Alert, no distress Skin; warm and dry CV; no murmur, reg Resp; clear GI; soft non acute benign, non tender Test 06/12/17 02:22 06/12/17 03:49 06/12/17 10:15 06/13/17 05:10 Prothrombin Time 10.8sec (8.1-12.5) Prothromb Time International Ratio 1.01ratio Magnesium Level 1.7mg/dL (1.6-2.6) Lipase 41U/L (13-60) Alcohols < 10mg/dL (0-10) Urine Color Yellow (YELLOW) Urine Appearance Clear (CLEAR,HAZY) Urine pH 5.5 (5.0-8.0) Urine Specific [place] 1.015 (1.003-1.035) Urine Protein Negativemg/dL (NEG,TRACE) Urine Glucose (UA) 500mg/dL (NEGATIVE) Urine Ketones Negativemg/dL (NEGATIVE) Urine Occult Blood Negative (NEGATIVE) Urine Nitrite Negative (NEGATIVE) Urine Bilirubin Negative (NEGATIVE) Urine Urobilinogen Normalmg/dL (NORMAL) Urine Leukocyte Esterase Negative (NEGATIVE) Urine RBC 0-2/hpf (0-2) Urine WBC 0-5/hpf (0-5) Urine Epithelial Cells Occasional/hpf (NONE-MOD) Urine Crystals None seen (NONE SEEN) Urine Bacteria None/hpf (NONE-FEW) Urine Hyaline Casts None/lpf (NONE) Urine Granular Casts None seen (NONE SEEN) Urine Waxy Casts None seen (NONE SEEN) Urine Red Blood Cell Casts None seen (NONE SEEN) Urine White Blood Cell Casts None seen (NONE SEEN) Urine Mucus None seen (None Seen) Urine Trichomonas None seen (NONE SEEN) Urine Yeast None (NONE SEEN) Urinalysis Comment None Urine Opiates Screen Negative Urine Methadone Screen Negative Urine Barbiturates Screen Negative Urine Amphetamines Screen Negative Urine Benzodiazepines Screen Negative Urine Cocaine Metabolite Screen Negative Urine Cannabinoids Screen Negative Troponin T 0.010ug/L (0.0-0.011) White Blood Count 7.9th/mm3 (3.8-10.1) Red Blood Count 2.48mil/mm3 (4.40-5.80) Mean Corpuscular Volume 95.2fL (81-100) Mean Corpuscular Hemoglobin 31.9pg (27.0-35.0) Mean Corpuscular Hemoglobin Concent 33.5% (32.0-37.0) Red Cell Distribution Width 12.8% (12.3-15.4) Platelet Count 125bil/L (150-400) Neutrophils (%) (Auto) 52.5% (40-74) Lymphocytes (%) (Auto) 37.0% (14-46) Monocytes (%) (Auto) 6.3% (4-12) Eosinophils (%) (Auto) 2.8% (0-5) Basophils (%) (Auto) 0.4% (0-3) Sodium Level 139mEq/L (134-144) Potassium Level 4.4mEq/L (3.5-5.2) Chloride Level 104mEq/L (97-108) Carbon Dioxide Level 25mmol/L (18-29) Blood Urea Nitrogen 21mg/dL (8-27) Creatinine 0.96mg/dL (0.76-1.27) Estimat Glomerular Filtration Rate 83mL/min (>59) Glucose Level 135mg/dL (60-99) Calcium Level 8.2mg/dL (8.5-10.1) Total Bilirubin 0.3mg/dL (0.0-1.2) Aspartate Amino Transf (AST/SGOT) 27U/L (0-50) Alanine Aminotransferase (ALT/SGPT) 34U/L (0-44) Alkaline Phosphatase 48U/L (25-160) Total Protein 5.3g/dL (6.4-8.4) Albumin 3.3g/dL (3.4-5.0) Test 06/13/17 10:22 Hemoglobin 8.6g/dL (13.8-17.2) Hematocrit 25.2% (41.0-50.0) Discharge Medications Discharge Medications Cholecalciferol (Vitamin D3) (Vitamin D3) 1,000 Unit Tab.chew 2,000 UNIT PO DAILY (Reported) Glipizide (Glipizide) 5 Mg Tablet 2.5 MG PO BIDWM (Reported) Lisinopril (Lisinopril) 20 Mg Tablet 20 MG PO DAILY (Reported) Pantoprazole DR (Protonix) 40 Mg Tablet 40 MG PO DAILY Prescribed by: James RUBI MD Prazosin (Prazosin) 2 Mg Capsule 4 MG PO HS (Reported) Pregabalin (Lyrica) 150 Mg Capsule 150 MG PO BID (Reported) As needed Oxycodone (Roxicodone) 5 Mg Tablet 10 MG PO Q4-6Hrs PRN PRN For Pain (Reported) Time spent 40 minutes time spent discharging patient home so far today James Rubi MD Jun 13, 2017 16:05
[2017-06-13] MEDS ORDERED: PANT40TA2 PO (16:10)
[2017-06-13 16:32] VITALS: BP 134/73; PULSE 85; RESP 20; O2SAT 96
--- NOTE | 2017-06-13 16:48 | NUR ---
Social Work-discharge: Data:EMR Reviewed. Pt is on day 1 of hospitalization for UGI bleed per H&P. Pt is medically stable for discharge. Per RN notes, pt has been up independent in his room. No discharge needs identified. All updated and agreeable to plan. Assessment:Pt who is independent at baseline. Plan:Pt to discharge home today via POV. No discharge needs identified. All updated and agreeable to plan. JHONATAN Cruz
--- NOTE | 2017-06-13 18:33 | NUR ---
Discharge Pt discharged at about 1730. All belongings with pt. Discharge instruction reviewed. Per prvd request provide pt and copy of discharge summary. IV removed. Pt escorted to diagnostic center entrance via wheelchair. Pt states he felt a little lightheaded when he got up to walk, but it passed. Provided him with some apple juice. Prior to discharge pt showered and did not report dizziness or lightheadedness. No further questions from pt or prior to discharge. They will be following up with their PCP in [place].
--- NOTE | 2017-06-18 13:57 | PATH ---
SURGICAL PATHOLOGY Attending Physician:Brad Junior M.D. CASE STATUS: Signed Out PATIENT NAME: EVELYN DOTY PID: [id number] : 1950 DATE COLLECTED:06/12/2017 00:00 SPECIMEN: 1: Esophagus, Biopsy 2: Gastric, Biopsy CLINICAL HISTORY: 1). DISTAL ESOPHAGUS BIOPSY 2). PREPYLORIC/PYLORIC ULCER BIOPSY FINAL DIAGNOSIS: 1. Distal Esophagus, Biopsy: Squamocolumnar junctional mucosa with no diagnostic abnormality. Negative for intestinal metaplasia, dysplasia or malignancy. 2. Prepyloric/Pyloric Ulcer, Biopsy: Gastric antral mucosa with chronic active Helicobacter gastritis and intestinal metaplasia. Gastric body mucosa with chronic gastritis. Helicobacter organisms identified on immunohistochemical stain. Negative for dysplasia or malignancy. ICD10: B96.81 GROSS DESCRIPTION: The specimen is received in two formalin filled containers labeled with the patient's name. 1). The specimen is labeled "distal esophagus" and consists of a 0.2 x 0.2 x 0.2 CM portion of tissue which is entirely submitted in cassette 1A. 2). The specimen is labeled "prepyloric/pyloric ulcer" and consists of multiple portions of tissue which aggregate to 0.3 x 0.3 x 0.2 CM. The specimen is entirely submitted in cassette 2A. 06/13/2017DC MICRO DESCRIPTION: 2. An immunohistochemical stain was performed to evaluate for Helicobacter organisms and is positive. The control stain showed appropriate reactivity. * This test was developed and its performance characteristics determined by [facility]. It has not been cleared or approved by the U.S. Food and Drug Administration. The FDA has determined that such clearance or approval is not necessary. This test is used for clinical purposes. It should not be regarded as investigational or for research. ICD-9 CODES: CPT CODES: 1: 05576 2: 10741, 50361 Electronically Signed Out Gene Johnston MD, Ph.D. [facility] [address], [place] [address] Technical component performed at [facility], [address], [place], [address]
== END 2017-06-13 17:30 | disposition home or self-care (01) | DRG 384 ==
LOC: SED 02:10 → EDBD 02:14 → MPC 05:44
PROVIDERS: ADMIT Specialist; ATTEND Specialist
PROC: 0DB38ZX Excision of Lower Esophagus, Via Natural or Artificial Opening Endoscopic, Diagnostic (ICD-10-PCS; 2017-06-12)
PROC: 0DB68ZX Excision of Stomach, Via Natural or Artificial Opening Endoscopic, Diagnostic (ICD-10-PCS; principal; 2017-06-12 15:00)
DX: K25.3 Acute gastric ulcer without hemorrhage or perforation (principal); D62 Acute posthemorrhagic anemia; K22.70 Barrett's esophagus without dysplasia; R56.9 Unspecified convulsions; I10 Essential (primary) hypertension; L40.9 Psoriasis, unspecified; E11.65 Type 2 diabetes mellitus with hyperglycemia; Z79.84 Long term (current) use of oral hypoglycemic drugs